=== PATIENT | male | born 1945 | race American Indian/Alaskan Native ===

== ENCOUNTER 2020-05-11 07:00 | Emergency (ER) | payer SELFPAY ==
[~2020-05-11 07:00] MED LIST: EPINEPHrine 1 MG/10 ML SYRINGE ONE; SODIUM BICARB 8.4% 50 MEQ/50 ML SYRINGE IV ONE
--- NOTE | 2020-05-11 07:42 | Emergency Department Report ---
ED CPR HPI - General Chief Complaint: Cardiac Arrest/CPR Stated Complaint: CARDIAC ARREST Time Seen by Provider: 05/11/20 07:38 Source: EMS - History of Present Illness Initial Comments: 75-year-old male presents to ED in cardiac arrest. Per EMS, they were called out for difficulty breathing. Patient was at home with his ex-, who called 911. She reported that patient had fallen out of bed. Upon EMS arrival, patient had agonal breathing and a faint pulse which he immediately lost. Initial rhythm was PEA. Patient was given epi x4, bicarb x1. IO and Combitube were placed. Patient arrives to ED in continued arrest. Patient has been in cardiac arrest with EMS for approximately 25 minutes. MD Complaint: stopped breathing Place: home Bystander CPR Performed: No Shock Advised: No Initial Findings in the Field: agonal, PEA ROSC in the Field: No Associated Symptoms: shortness of breath Treatments Prior to Arrival: other airway device, chest compressions, epinephrine mgs # (x4), sodium bicarbonate (x1) ED Review of Systems ROS: Stated complaint: CARDIAC ARREST Other details as noted in HPI Comment: Unobtainable due to pts medical conditions ED Physical Exam - Head Head exam: Present: atraumatic, normocephalic - Eye Pupils: Present: other (Fixed and dilated bilaterally) - ENT ENT exam: Present: mucous membranes moist - Neck Neck exam: Present: normal inspection - Respiratory Respiratory exam: Present: other (No spontaneous breaths) - Cardiovascular Cardiovascular Exam: Present: other (No palpable pulse) - GI/Abdominal GI/Abdominal exam: Present: soft. Absent: distended - Extremities Exam Extremities exam: Present: normal inspection - Neurological Exam Neurological exam: Present: other (GCS of 3) - Skin Skin exam: Present: warm, dry, intact, normal color ED Medical Decision Making - Medical Decision Making 75-year-old male presents to ED in cardiac arrest, already ongoing x25 minutes. Upon arrival patient in PEA. ACLS was continued according to protocol, however, unfortunately there was no ROSC. Time of was called at 7:07 AM. Family notified. Please see nurses notes for details of the code. - Differential Diagnosis PE, arrhythmia, ACS Critical care attestation.: If time is entered above; I have spent that time in minutes in the direct care of this critically ill patient, excluding procedure time. ED Disposition Clinical Impression: Cardiac arrest Disposition: DC-20 Is pt being admited?: No Condition: Stable Referrals: SANTOS BASURTO MD [Primary Care Provider] - 3-5 Days Time of Disposition: 07:42
== END 2020-05-11 08:00 ==
LOC: ED 07:00
DX: I46.9 Cardiac arrest, cause unspecified (principal)
CPT/HCPCS: 99285; J0171